=== PATIENT | female | born 1990 | race Asian ===

== ENCOUNTER 2020-10-25 19:23 | Emergency (ER) | payer SELFPAY ==
[~2020-10-25] VITALS: Ht 154.9 cm; Wt 77.7 kg
--- NOTE | 2020-10-25 19:55 | NUR ---
PT AMBULATORY TO ROOM 23 W/ C/O VB/CRAMPING STARTED TODAY AT 1700. STATES SHE HAS NOTICED SOME MILD BROWN SPOTTING BUT TODAY HAD BRIGHT RED BLEEDING 3-4 TIMES WHEN UTIILIZING THE RESTROOM W/ CRAMPING. A0. PT RESTING ON GURNEY. NADN. MONITORS APPLIED. VSS.W ARM BLANKET PROVIDED. AT BEDSIDE. EDPA LONG AT BEDSIDE FOR EVAL.
[2020-10-25 20:13] LABS: BASOPHILS % (AUTO) 1 % (0-1); EOSINOPHILS % (AUTO) 2 % (1-7); LYMPHOCYTES % (AUTO) 20 % (22-44); MEAN CORPUSCULAR HEMOGLOBIN 25.9 pg (27.0-34.8); MEAN CORPUSCULAR HGB CONC 33.1 g/dL (32.4-35.8); MEAN PLATELET VOLUME 7.7 fL (7.4-10.4); MONOCYTES % (AUTO) 7 % (2-9); NEUTROPHILS % (AUTO) 70 % (42-75); PLATELET COUNT 396 x10^3/uL (130-400); RED BLOOD COUNT 4.94 x10^6/uL (3.82-5.3); RED CELL DISTRIBUTION WIDTH 18.1 % (9.6-15.2)
[2020-10-25 20:19] LABS: MD NO
[2020-10-25 20:20] LABS: ALBUMIN 3.9 g/dL (3.4-5.0); ANION GAP 6 mmol/L (5-15); CALCIUM 9.8 mg/dL (8.5-10.1); CHLORIDE 105 mmol/L (98-107); CREATININE 0.78 mg/dL (0.55-1.02)
[2020-10-25 20:30] LABS: MICROSCOPIC INDICATED
--- NOTE | 2020-10-25 20:56 | NUR ---
REPORT GIVEN TO HANY NGUYEN.
--- NOTE | 2020-10-25 20:59 | NUR ---
SPOKE W/ EDPA LONG IN REGARDS TO PT'S US RESULT AND RHOGAM. PER EDPA WILL CHECK W/ ERP DR. FONSECA BUT PLAN TO GIVE RHOGAM.
--- NOTE | 2020-10-25 21:05 | NUR ---
assumed care of pt. report from Kathryn LEACH. pt here for VB with . pt has reported increased bleeding and some cramping. . at bedside for recheck
--- NOTE | 2020-10-25 21:25 | NUR ---
pt in [place]
--- NOTE | 2020-10-25 22:00 | NUR ---
consent has been obtained for Rhogam administration
--- NOTE | 2020-10-25 22:01 | NUR ---
Rhogam has been verified at bedside by Lobo LEACH
--- NOTE | 2020-10-25 22:15 | NUR ---
pt requesting to speak to MD or PA again regarding her bleeding and abd pain. Larisa notified
--- NOTE | 2020-10-25 22:55 | NUR ---
Larisa BALDERRAMA at bedside for pelvic exam
[2020-10-25] MEDS ORDERED: SODIUM CHLORIDE 0.9% 1,000ML IVBOLUS ONE (23:00)
[2020-10-25] MEDS ORDERED: SODIUM CHLORIDE FLUSH 10ML SYR IVF ONE (23:00)
[2020-10-25] MEDS ORDERED: FENTANYL PF 100 MCG/2ML IVPush ONE (23:00)
[2020-10-25] MEDS ORDERED: ACETAMINOPHEN 500 MG TABLET PO ONE (23:00)
[2020-10-25] MEDS ORDERED: FENTANYL PF 100 MCG/2ML ONE (23:07)
[2020-10-25] MEDS ORDERED: ACETAMINOPHEN 500 MG TABLET ONE (23:10)
--- NOTE | 2020-10-25 23:10 | NUR ---
Iv infusing. pt positioning for comfort. pt at bedside
--- NOTE | 2020-10-25 23:35 | NUR ---
Dr. Wahl at bedside for recheck
[2020-10-25] MEDS ORDERED: MORPHINE SULFATE 4 MG/ML, 1ML ONE (23:55)
[2020-10-25] MEDS ORDERED: ONDANSETRON 2MG/ML, 2ML ONE (23:55)
[2020-10-26] MEDS ORDERED: MISOPROSTOL 100 MCG TABLET PO ONE
[2020-10-26] MEDS ORDERED: KETOROLAC 30 MG/1 ML IVPush ONE
[2020-10-26] MEDS ORDERED: HYDROcodone/APAP 5/325 TABLET PO ONE
[2020-10-26] MEDS ORDERED: ONDANSETRON 2MG/ML, 2ML IVPush ONE
[2020-10-26] MEDS ORDERED: MORPHINE SULFATE 4 MG/ML, 1ML IVPush ONE
[2020-10-26] MEDS ORDERED: KETOROLAC 30 MG/1 ML ONE (00:29)
[2020-10-26 01:12] VITALS: BP 110/64
== END 2020-10-26 01:17 | disposition home or self-care (01) ==
LOC: ED 21:23
DX: O20.0 Threatened abortion (principal); R10.2 Pelvic and perineal pain; Z3A.10 10 weeks gestation of pregnancy
CPT/HCPCS: 36415; 76801; 80048; 81001; 82040; 84702; 85025; 86850; 86900; 96361; 96372; 96374; 96375; 99285; J1885; J2270; J2405; J2790; J3010; J7030